=== PATIENT | female | born 1995 | race Caucasian/White ===

== ENCOUNTER → 2017-09-28 | Outpatient (CLI) | payer OTHER | LOC: BMCIMAGING 08:45 → EDSTATUS 08:47 | PROVIDERS: ATTEND Family Medicine | DX: M25.561 Pain in right knee (principal) ==

== ENCOUNTER 2018-02-20 18:35 | Emergency (ER) | payer OTHER ==
[2018-02-20 18:42] VITALS: BP 125/83
--- NOTE | 2018-02-20 18:57 | EDPHY ---
H & P Stated Complaint: cough Time Seen by Provider: 02/20/18 18:54 - Personal History LMP (Females 10-55): 22-28 Days Ago Current Tetanus/Diphtheria Vaccine: Yes Current Tetanus Diphtheria and Acellular Pertussis (TDAP): Yes - Medical/Surgical History Hx Asthma: Yes Hx Chronic Respiratory Disease: No Hx Diabetes: No Hx Cardiac Disease: No Hx Renal Disease: No Hx Cirrhosis: No Hx Alcoholism: No Hx HIV/AIDS: No Other PMH: asthma, bronchitis, - Social History Smoking Status: Current some day smoker Constitutional: Initial Vital Signs Temperature (C) 36.9 C 02/20/18 18:39 Heart Rate 69 02/20/18 18:39 Respiratory Rate 16 02/20/18 18:39 Blood Pressure 125/83 H 02/20/18 18:39 O2 Sat (%) 97 02/20/18 18:39 O2 Delivery Mode Room Air Allergies/Adverse Reactions: amoxicillin Allergy (Verified 02/20/18 18:39) Home Medications: Medication Instructions Recorded Albuterol 02/20/18 Albuterol [Proventil Inhaler] 1 - 2 puffs IH Q4 #1 mdi 02/20/18 Azithromycin [Zithromax] 250 mg PO DAILY #6 tab 02/20/18 Flonase Nasal [place] 02/20/18 HYDROcodone/HOMATROPINE HYCODA 1 tsp PO Q4-6PRN PRN #120 ml 02/20/18 [Hycodan Syrup (RX)] Tylenol Cold-Flu Severe [place] 02/20/18 Medical Decision Making ED Course/Re-evaluation: CHIEF COMPLAINT: Cough, shortness of breath, chest pain HISTORY OF PRESENT ILLNESS: The patient is a 22 y/o female with a history of asthma complaining of worsening cough, shortness of breath, and chest pain, onset 7 days ago. Around 5 days ago she tried using Flonase, but this caused her to have more sputum. 2 days ago her symptoms worsened and was not alleviated with Mucinex or Tylenol. Denies sore throat, headache, abdominal pain, urinary or bowel complaints, fever , numbness, paresthesias. REVIEW OF SYSTEMS: A 10 point review of systems was performed and is negative with the exception of the elements mentioned in the history of present illness. PHYSICAL EXAM: HR, BP, O2 Sat, RR. Temp noted General Appearance: Alert, well hydrated, appropriate, and non-toxic appearing. Head: Atraumatic without scalp tenderness or obvious injury Eyes: Pupils equal, round, reactive to light and accommodation, EOMI, no trauma , no injection. Ears: Clear bilaterally, no perforation, normal landmarks Nose: Atraumatic, no rhinorrhea, clear. Throat: There is no erythema or exudates, no lesions, normal tonsils, mucus membranes moist. Neck: Supple, nontender, no lymphadenopathy. Respiratory: Bilateral coarse rhonchi throughout. No retractions, no distress, no wheezes, and no accessory muscle use. Cardiovascular: Regular rate and rhythm, no murmurs, rubs, or gallops. Good capillary refill all extremities. Gastrointestinal: Abdomen is soft, nontender, non-distended, no masses, no rebound, no guarding, no peritoneal signs. Musculoskeletal: Normal active ROM of all extremities, atraumatic. Neurological: Alert, appropriate, and interactive. Nonfocal neuro. Skin: No rashes, good turgor, no nodules on palpation. Past medical history: Asthma, bronchitis Past surgical history: Denies Family history: Denies Social history: Originally from [place], single, employed DIFFERENTIAL DIAGNOSIS: The differential diagnosis for the patient's shortness of breath and hypoxemia included but was not limited to viral infection, bacterial infection, pneumonia , myocardial infarction, acute mountain sickness, high altitude pulmonary edema , congestive heart failure, and pulmonary embolus. MEDICAL DECISION MAKING: The patient is a 22 y/o female with a history of asthma presenting with worsening cough, shortness of breath, and chest pain, onset 7 days ago. On exam she has bilateral coarse rhonchi throughout. Laboratory and imaging studies are not indicated at this time. Reassessed patient and discussed Zithromax, Proventil, and Hycodan elixer prescriptions. Return precautions provided; patient is comfortable with this plan. Departure - Departure Disposition: Home, Routine, Self-Care Clinical Impression: Cough, Shortness of breath Condition: Good Instructions: Acute Cough (ED), Shortness of Breath (ED) Additional Instructions: 1. Take Zithromax as prescribed. Make sure to finish the entire prescription. 2. Continue using your albuterol inhaler. 3. Take Hycodan elixir as prescribed 4. Follow up with primary care physician in 3-4 days if not improving. 5. Return to the Emergency Department for uncontrollable fever, shortness of breath, or other worsening of condition. Referrals: [facility],. [Clinic] - As per Instructions Prescriptions: Albuterol [Proventil Inhaler] 1 - 2 puffs IH Q4 #1 mdi Azithromycin [Zithromax] 250 mg PO DAILY #6 tab HYDROcodone/HOMATROPINE HYCODA [Hycodan Syrup (RX)] 1 tsp PO Q4-6PRN PRN #120 ml PRN Reason: Cough, Moderate Report Scribed for: Evelio Knight Report Scribed by: Emma Barger Date of Report: 02/20/18 Time of Report: 18:56
== END 2018-02-20 19:28 | disposition home or self-care (01) ==
DX: R06.02 Shortness of breath (principal); R05 Cough; J45.909 Unspecified asthma, uncomplicated; F17.200 Nicotine dependence, unspecified, uncomplicated